=== PATIENT | male | born 1955 | race Caucasian/White ===

== ENCOUNTER 2016-12-17 05:32 | Inpatient (IN) | payer OTHER ==
[2016-12-17] MEDS: SCOPOLAMINE 1.5MG PATCH TD SCH (05:57)
[2016-12-17] MEDS ORDERED: LACTATED RINGERS 1,000 ML IV ONE (06:00)
[2016-12-17] MEDS ORDERED: LACTATED RINGERS 1,000 ML IV SCH (07:00)
[2016-12-17] MEDS ORDERED: SODIUM CHLORIDE 20 ML 40 ML ONE (07:06)
[2016-12-17] MEDS ORDERED: TETRACAINE HCL 1% SOL ONE (07:24)
[2016-12-17] MEDS ORDERED: DEXAMETHASONE 20 MG/5 ML (4 MG/ML SOL) ONE (07:28)
[2016-12-17] MEDS ORDERED: PHENYLEPHRINE HYDROCHLORIDE 10 MG/ML SOL ONE (07:28)
[2016-12-17] MEDS ORDERED: PROPOFOL 500 MG/50 ML EMU IV ONE ×4 (07:28→09:54)
[2016-12-17] MEDS ORDERED: MIDAZOLAM 2 MG/2 ML SOL ONE ×2 (07:28→10:35)
[2016-12-17] MEDS ORDERED: KETAMINE HYDROCHLORIDE 50 MG/ML SOL ONE (07:28)
[2016-12-17] MEDS ORDERED: ONDANSETRON HCL 4 MG/2 ML SOL ONE (07:28)
[2016-12-17] MEDS ORDERED: LIDOCAINE HCL 1% MPF SOL ONE (07:28)
[2016-12-17] MEDS ORDERED: CEFAZOLIN SODIUM 1 GM PDS ONE ×3 (07:29→23:31)
[2016-12-17] MEDS ORDERED: HYDROMORPHONE 1 MG/ML SYRINGE ONE ×2 (07:29→12:50)
[2016-12-17] MEDS ORDERED: METOCLOPRAMIDE HYDROCHLORIDE 5 MG/ML SOL ONE (09:03)
[2016-12-17] MEDS: BUPIVACAINE LIPOSOME 20 ML SUS ONE ×4 (09:23→11:33)
[2016-12-17] MEDS ORDERED: PROPOFOL 10 MG/ML EMU IV ONE ×5 (09:55→11:50)
[2016-12-17] MEDS ORDERED: ONDANSETRON HCL 4 MG/2 ML SOL IV PRN (10:15)
[2016-12-17] MEDS ORDERED: DIPHENHYDRAMINE 50 MG/ML SOL IV PRN (10:15)
[2016-12-17] MEDS ORDERED: ALUMINUM/MAGNESIUM 30 ML SUS PO PRN (10:15)
[2016-12-17] MEDS ORDERED: FLEET ENEMA PR PRN (10:15)
[2016-12-17] MEDS ORDERED: BISACODYL 10 MG SUP PR PRN (10:15)
[2016-12-17] MEDS ORDERED: TEMAZEPAM 15MG 15 MG CAP PO PRN (10:15)
[2016-12-17] MEDS ORDERED: SODIUM CHLORIDE 0.9% 500 ML 500 ML IV PRN (10:15)
[2016-12-17] MEDS: TRANEXAMIC ACID 100 MG/ML SOL ONE ×2 (10:16→11:35)
[2016-12-17] MEDS ORDERED: KETOROLAC TROMETHAMINE 30 MG/ML SOL ONE (12:50)
[2016-12-17] MEDS: DEXTROSE/SALINE 0.45% 1,000 ML IV SCH (13:47)
[2016-12-17] MEDS: SODIUM CHLORIDE 0.9% FLUSH 10 ML SOL IV SCH ×2 (13:49→19:39)
[2016-12-17] MEDS: OXYCODONE HYDROCHLORIDE 5 MG TAB PO PRN ×4 (14:07→23:08)
[2016-12-17] MEDS: ACETAMINOPHEN 500 MG 500 MG TAB PO SCH ×3 (14:07→21:20)
[2016-12-17] MEDS: DIPHENHYDRAMINE 25 MG CAP PO PRN (14:12)
[2016-12-17] MEDS ORDERED: SODIUM CHLORIDE 0.9% 100 ML 100 ML IV ONE ×2 (16:33→23:31)
[2016-12-17] MEDS: CEFAZOLIN SODIUM 1 GM PDS 3 GM in SODIUM CHLORIDE 0.9% 100 ML 100 ML IV SCH ×2 (16:43→23:44)
[2016-12-17] MEDS: DIAZEPAM 5 MG TAB PO PRN (17:53)
[2016-12-17] MEDS: HYDROMORPHONE HCL 2 MG/ML SOL IV PRN (18:48)
[2016-12-17] MEDS: SENNOSIDES A AND B 8.6 MG TAB PO SCH (21:20)
[2016-12-18] MEDS: DEXTROSE/SALINE 0.45% 1,000 ML IV SCH (00:45)
[2016-12-18] MEDS: SODIUM CHLORIDE 0.9% FLUSH 10 ML SOL IV SCH ×5 (02:45→20:13)
[2016-12-18] MEDS: OXYCODONE HYDROCHLORIDE 5 MG TAB PO PRN ×6 (02:50→19:56)
[2016-12-18] MEDS: DIAZEPAM 5 MG TAB PO PRN (04:24)
[2016-12-18] MEDS: HYDROMORPHONE HCL 2 MG/ML SOL IV PRN ×2 (05:12→08:58)
[2016-12-18] MEDS: DIPHENHYDRAMINE 25 MG CAP PO PRN (05:19)
[2016-12-18 07:31] LABS: MEAN CORPUSCULAR HGB CONC 34.4 gm/dl (32.0-36.0)
[2016-12-18] MEDS: METFORMIN HYDROCHLORIDE 500 MG TAB PO SCH (09:06)
[2016-12-18] MEDS: ATORVASTATIN 10 MG TAB PO SCH (09:06)
[2016-12-18] MEDS: ACETAMINOPHEN 500 MG 500 MG TAB PO SCH ×4 (09:06→22:32)
[2016-12-18] MEDS: HYDROCHLOROTHIAZIDE 25 MG TAB PO SCH (09:06)
[2016-12-18] MEDS: AMLODIPINE 5 MG TAB PO SCH (09:06)
[2016-12-18] MEDS: LOSARTAN POTASSIUM 50 MG TAB PO SCH (09:06)
[2016-12-18] MEDS: RIVAROXABAN 10 MG TAB PO SCH (09:06)
[2016-12-18] MEDS: MULTIVITAMIN2 1 EA TAB PO SCH (09:06)
[2016-12-18] MEDS: ONDANSETRON 4 MG ODT BU PRN (10:58)
[2016-12-18] MEDS: SENNOSIDES A AND B 8.6 MG TAB PO SCH ×2 (19:55→20:13)
[2016-12-19] MEDS: OXYCODONE HYDROCHLORIDE 5 MG TAB PO PRN ×5 (02:03→20:05)
[2016-12-19 07:22] LABS: MEAN CORPUSCULAR HGB CONC 35.4 gm/dl (32.0-36.0)
[2016-12-19] MEDS: SCOPOLAMINE 1.5MG PATCH TD SCH (08:40)
[2016-12-19] MEDS: ONDANSETRON 4 MG ODT BU PRN (08:40)
[2016-12-19] MEDS: ACETAMINOPHEN 500 MG 500 MG TAB PO SCH ×4 (09:40→20:03)
[2016-12-19] MEDS: LOSARTAN POTASSIUM 50 MG TAB PO SCH (09:41)
[2016-12-19] MEDS: METFORMIN HYDROCHLORIDE 500 MG TAB PO SCH (09:41)
[2016-12-19] MEDS: ATORVASTATIN 10 MG TAB PO SCH (09:41)
[2016-12-19] MEDS: HYDROCHLOROTHIAZIDE 25 MG TAB PO SCH (09:42)
[2016-12-19] MEDS: AMLODIPINE 5 MG TAB PO SCH (09:42)
[2016-12-19] MEDS: RIVAROXABAN 10 MG TAB PO SCH (09:42)
[2016-12-19] MEDS: MULTIVITAMIN2 1 EA TAB PO SCH (09:42)
[2016-12-19] MEDS: SENNOSIDES A AND B 8.6 MG TAB PO SCH (20:03)
[2016-12-20] MEDS: SCOPOLAMINE 1.5MG PATCH TD SCH (06:14)
[2016-12-20] MEDS: OXYCODONE HYDROCHLORIDE 5 MG TAB PO PRN ×4 (06:22→20:01)
[2016-12-20 06:58] LABS: MEAN CORPUSCULAR HGB CONC 33.6 gm/dl (32.0-36.0)
[2016-12-20] MEDS: ACETAMINOPHEN 500 MG 500 MG TAB PO SCH ×4 (08:52→20:00)
[2016-12-20] MEDS: MULTIVITAMIN2 1 EA TAB PO SCH (08:52)
[2016-12-20] MEDS: ATORVASTATIN 10 MG TAB PO SCH (08:52)
[2016-12-20] MEDS: LOSARTAN POTASSIUM 50 MG TAB PO SCH (08:52)
[2016-12-20] MEDS: HYDROCHLOROTHIAZIDE 25 MG TAB PO SCH (08:52)
[2016-12-20] MEDS: RIVAROXABAN 10 MG TAB PO SCH (08:52)
[2016-12-20] MEDS: METFORMIN HYDROCHLORIDE 500 MG TAB PO SCH (08:53)
[2016-12-20] MEDS: AMLODIPINE 5 MG TAB PO SCH (08:53)
[2016-12-20] MEDS: ONDANSETRON 4 MG ODT BU PRN (09:27)
[2016-12-20] MEDS ORDERED: SODIUM CHLORIDE 0.9% FLUSH 10 ML SOL IV PRN (12:49)
[2016-12-20] MEDS ORDERED: SODIUM CHLORIDE 0.9% 500 ML 500 ML IV SCH (13:00)
[2016-12-20] MEDS: MAGNESIUM HYDROXIDE 30 ML SUS PO PRN (17:02)
[2016-12-20] MEDS: SENNOSIDES A AND B 8.6 MG TAB PO SCH (20:00)
[2016-12-21] MEDS: OXYCODONE HYDROCHLORIDE 5 MG TAB PO PRN ×3 (06:20→11:31)
[2016-12-21] MEDS: RIVAROXABAN 10 MG TAB PO SCH (08:02)
[2016-12-21] MEDS: LOSARTAN POTASSIUM 50 MG TAB PO SCH (08:02)
[2016-12-21] MEDS: MAGNESIUM HYDROXIDE 30 ML SUS PO PRN (08:02)
[2016-12-21] MEDS: ACETAMINOPHEN 500 MG 500 MG TAB PO SCH ×2 (08:02→14:16)
[2016-12-21] MEDS: AMLODIPINE 5 MG TAB PO SCH (08:02)
[2016-12-21] MEDS: HYDROCHLOROTHIAZIDE 25 MG TAB PO SCH (08:02)
[2016-12-21] MEDS: METFORMIN HYDROCHLORIDE 500 MG TAB PO SCH (08:02)
[2016-12-21] MEDS: ATORVASTATIN 10 MG TAB PO SCH (08:02)
[2016-12-21] MEDS: MULTIVITAMIN2 1 EA TAB PO SCH (08:02)
[2016-12-21 08:06] VITALS: BP 138/70; PULSE 85; RESP 22; TEMP 98.6; O2SAT 94
== END 2016-12-21 15:15 | disposition home or self-care (01) | DRG 462 ==
LOC: ACUTE CARE 05:32
PROVIDERS: ADMIT Orthopaedic Surgery; ATTEND Orthopaedic Surgery
PROC: 0SRC0J9 Replacement of Right Knee Joint with Synthetic Substitute, Cemented, Open Approach (ICD-10-PCS; 2016-12-17)
PROC: F01ZDFZ Gait and/or Balance Assessment using Assistive, Adaptive, Supportive or Protective Equipment (ICD-10-PCS; 2016-12-17)
PROC: F01ZCZZ Transfer Assessment (ICD-10-PCS; 2016-12-17)
PROC: F01ZBZZ Bed Mobility Assessment (ICD-10-PCS; 2016-12-17)
PROC: 0SRD0J9 Replacement of Left Knee Joint with Synthetic Substitute, Cemented, Open Approach (ICD-10-PCS; principal; 2016-12-17 08:00)
PROC: F02Z1ZZ Dressing Assessment (ICD-10-PCS; 2016-12-18)
PROC: F02Z0ZZ Bathing/Showering Assessment (ICD-10-PCS; 2016-12-18)
PROC: F02Z3ZZ Grooming/Personal Hygiene Assessment (ICD-10-PCS; 2016-12-18)
PROC: 30233N1 Transfusion of Nonautologous Red Blood Cells into Peripheral Vein, Percutaneous Approach (ICD-10-PCS; 2016-12-20)
DX: M17.0 Bilateral primary osteoarthritis of knee (principal); D64.9 Anemia, unspecified; I10 Essential (primary) hypertension; E78.5 Hyperlipidemia, unspecified; I25.10 Atherosclerotic heart disease of native coronary artery without angina pectoris; G47.33 Obstructive sleep apnea (adult) (pediatric); R91.1 Solitary pulmonary nodule; R73.03 Prediabetes
CPT/HCPCS: 36415; 73560; 82962; 85018; 85027; 94150; 99070; J0690; J1100; J1170; J1885; J2250; J2405; J2765; P9016; A6219; A6232; J2001; J2704; Q3014

== ENCOUNTER 2017-01-29 10:11 | Outpatient (CLI) | payer OTHER ==
[2016-12-21 08:06] VITALS: O2SAT 94
== END 2017-01-29 10:12 | disposition home or self-care (01) | DRG 561 ==
LOC: CONVCARE 10:11
PROVIDERS: ATTEND Orthopaedic Surgery
DX: Z47.1 Aftercare following joint replacement surgery (principal); Z96.653 Presence of artificial knee joint, bilateral
CPT/HCPCS: 73562

== ENCOUNTER 2017-05-20 09:43 | Outpatient (CLI) | payer OTHER ==
[2016-12-21 08:06] VITALS: O2SAT 94
== END 2017-05-20 09:44 | disposition home or self-care (01) | DRG 556 ==
LOC: CONVCARE 09:43
PROVIDERS: ATTEND Orthopaedic Surgery
DX: M25.561 Pain in right knee (principal); M23.8X1 Other internal derangements of right knee
CPT/HCPCS: 73560

== ENCOUNTER 2017-12-30 10:53 | Outpatient (CLI) | payer OTHER ==
[2016-12-21 08:06] VITALS: O2SAT 94
== END 2017-12-30 10:54 | disposition home or self-care (01) | DRG 561 ==
LOC: CONVCARE 10:53
PROVIDERS: ATTEND Orthopaedic Surgery
DX: Z47.1 Aftercare following joint replacement surgery (principal); Z96.653 Presence of artificial knee joint, bilateral
CPT/HCPCS: 73562